=== PATIENT | male | born 1955 | race Caucasian/White ===

== ENCOUNTER 2018-12-13 20:11 | Emergency (ER) | payer BC ==
[2018-12-13] MEDS ORDERED: Tetracaine 0.5% OPTH.SOL 4 ML* 1 DROP BTL BOTH EYES ONE (20:37)
[2018-12-13] MEDS ORDERED: Fluorescein Sodium TOPICAL* 1 MG TEST STRIP OPHTHALMIC ONE (20:37)
--- NOTE | 2018-12-13 20:40 | UC ---
Eye Complaint HPI - HPI Summary HPI Summary: 63 yo male presents with LEFT eye redness and yellow drainage. He tells me that on 12/09 he was working and something got into his LEFT eye. He rubbed it and removed a piece of ?hair. Since that time has developed redness and yellow drainage/crusting. He wakes up in the morning with his eye crusted shut. Denies vision changes. Of note, his BP is elevated today. He has a dx of HTN. He says that he has been out of his lisinopril for the past 2 days, but has been taking his other medications. He is having no headache, dizziness, weakness, numbness, SOB, chest pain, n/v. - History of Current Complaint Chief Complaint: UCEye Stated Complaint: EYE IRRITATION Time Seen by Provider: 12/13/18 20:39 Hx Obtained From: Patient Onset/Duration: Gradual Onset Severity Initially: Mild Severity Currently: Moderate Pain Intensity: 5 - Allergies/Home Medications Allergies/Adverse Reactions: Allergies Allergy/AdvReac Type Severity Reaction Status Date / Time No Known Allergies Allergy Verified 12/13/18 20:18 Home Medications: Home Medications Aspirin [Raghavendra Aspirin EC Low Dose 81 MG] 81 mg PO DAILY WITH MEAL 12/13/18 [ History Confirmed 12/13/18] Chlorthalidone 25 mg PO DAILY WITH MEAL 12/13/18 [History Confirmed 12/13/18] PARoxetine mesylate [Pexeva] 30 mg PO DAILY WITH MEAL 12/13/18 [History Confirmed 12/13/18] traZODone TAB* [Desyrel TAB*] 50 mg PO BEDTIME 12/13/18 [History Confirmed 12/13] PMH/Surg Hx/FS Hx/Imm Hx Cardiovascular History: Hypertension Psychological History: Anxiety - Surgical History Surgical History: Yes Surgery Procedure, Year, and Place: LEFT KNEE - Social History Occupation: Employed Full-time Lives: With Family Alcohol Use: Daily Substance Use Type: Marijuana Smoking Status (MU): Former Smoker Review of Systems All Other Systems Reviewed And Are Negative: No Constitutional: Positive: Negative Skin: Positive: Negative Eyes: Positive: Drainage, Eye Redness ENT: Positive: Negative Respiratory: Positive: Negative Cardiovascular: Positive: Negative Gastrointestinal: Positive: Negative Neurological: Positive: Negative Psychological: Positive: Negative Physical Exam - Summary Physical Exam Summary: GENERAL: NAD. WDWN. No pain distress. SKIN: No rashes, sores, lesions, or open wounds. HEENT: Head: AT/NC Eyes: EOM intact. PERRLA. LEFT EYE: Moderate scleral injection. Conjunctiva with moderate erythema and inflammation. Moderate yellow discharge. Fluorescein exam reveals no increased uptake, abrasion, ulceration, or sathish sign. RIGHT EYE: Conjunctiva clear without inflammation or discharge. No FBs appreciated Ears: Hearing grossly normal. TMs intact, no bulging, erythema, or edema. Nose: Nasal mucosa pink and moist. NTTP maxillary and frontal sinus. Throat: Posterior oropharynx without exudates, erythema, or tonsillar enlargement. Uvula midline. NECK: Supple. Nontender. No lymphadenopathy. CHEST: CTAB. No r/r/w. No accessory muscle use. Breathing comfortably and in no distress. CV: RRR. Without m/r/g. Pulses intact. Cap refill <2seconds NEURO: Alert. PSYCH: Age appropriate behavior. Triage Information Reviewed: Yes Vital Signs: Initial Vital Signs Temp 99.1 F 12/13/18 20:19 Pulse 87 12/13/18 20:19 Resp 18 12/13/18 20:19 BP 178/106 12/13/18 20:19 Pulse Ox 100 12/13/18 20:19 Vital Signs Reviewed: Yes Eye Complaint Course/Dx - Course Course Of Treatment: Suspect conjunctivitis. He was given cipro eye drops in the clinic to use QID. Regarding his elevated BP - he has a history of HTN and is being treated for this, unfortunately he has been out of his lisinopril for the last 2 days and states he has called his PCP for a refill, but has not heard back. I will refill this for him today and have him f/u with his PCP for elevated BP and further refills. - Differential Dx/Diagnosis Provider Diagnosis: Conjunctivitis, HTN (hypertension) Discharge ED - Sign-Out/Discharge Documenting (check all that apply): Patient Departure All imaging exams completed and their final reports reviewed: No Studies - Discharge Plan Condition: Stable Disposition: HOME Prescriptions: Lisinopril 20 mg PO DAILY WITH MEAL #30 tablet Patient Education Materials: Hypertension (ED), Conjunctivitis (ED) Referrals: Jethro Jackson MD [Primary Care Provider] - Additional Instructions: If you develop a fever, shortness of breath, chest pain, new or worsening symptoms - please call your PCP or go to the ED immediately. Your blood pressure was high at todays visit. Please see your primary provider within 4 weeks for recheck and re-evaluation. I refilled your lisinopril for a 30 day supply today. Please take your medications as prescribed and follow up with your primary doctor for continued refills - Billing Disposition and Condition Condition: STABLE Disposition: Home
[2018-12-13] MEDS ORDERED: Ciprofloxacin 0.3% OPTH.SOL* BTL LEFT EYE ONE (20:48)
[2018-12-13 21:09] VITALS: BP 166/108
== END 2018-12-13 21:00 | disposition home or self-care (01) ==
LOC: UCEAST 20:11
DX: H10.32 Unspecified acute conjunctivitis, left eye (principal); I10 Essential (primary) hypertension; Z79.82 Long term (current) use of aspirin; F41.9 Anxiety disorder, unspecified; Z87.891 Personal history of nicotine dependence
CPT/HCPCS: 99202; A9270-GY; G0463